=== PATIENT | female | born 1950 | race Caucasian/White ===

== ENCOUNTER 2017-11-26 07:18 | Day surgery (SDC) | payer MEDICARE, OTHER ==
[~2017-11-26] VITALS: Ht 165.1 cm; Wt 66.2 kg
[~2017-11-26 07:18] MED LIST: ASPIRIN81 MG; CAL MAG ZINC +1 EAC1; COZAAR50 MG PO; FENOFIBRIC ACI135 MG; GLUCOPHAGE500 MG PO; ISTALOL2.5 ML; LATANOPROST2.5 ML; NOVOLOG FL100 UNIT/1 SUB-Q; PRAVACHOL40 MG PO; VITAMIN B122500 MCG PO; VITAMIN E400 UNI4 PO
== END 2017-11-26 09:59 | disposition home or self-care (01) ==
LOC: DS 07:18 → OPS 07:18 → DS 08:30 → OPS 09:59
PROVIDERS: Ophthalmology
PROC: 08RK3JZ Replacement of Left Lens with Synthetic Substitute, Percutaneous Approach (ICD-10-PCS; principal; 2017-11-26 08:30)
DX: E11.36 Type 2 diabetes mellitus with diabetic cataract (principal); H25.13 Age-related nuclear cataract, bilateral; H40.1132 Primary open-angle glaucoma, bilateral, moderate stage; E78.00 Pure hypercholesterolemia, unspecified; I10 Essential (primary) hypertension; Z88.2 Allergy status to sulfonamides; Z83.3 Family history of diabetes mellitus; Z79.4 Long term (current) use of insulin
CPT/HCPCS: 0474T; 66984; C1783; J2250

== ENCOUNTER 2018-01-07 07:09 | Day surgery (SDC) | payer MEDICARE ==
[~2018-01-07] VITALS: Ht 165.1 cm; Wt 66.2 kg
== END 2018-01-07 09:19 | disposition home or self-care (01) ==
LOC: OPS 07:09 → DS 07:09 → OPS 08:30
PROVIDERS: Ophthalmology
PROC: 08RJ3JZ Replacement of Right Lens with Synthetic Substitute, Percutaneous Approach (ICD-10-PCS; principal; 2018-01-07 08:30)
DX: E11.36 Type 2 diabetes mellitus with diabetic cataract (principal); H25.11 Age-related nuclear cataract, right eye; E11.39 Type 2 diabetes mellitus with other diabetic ophthalmic complication; H40.9 Unspecified glaucoma; I10 Essential (primary) hypertension; E78.00 Pure hypercholesterolemia, unspecified; Z88.2 Allergy status to sulfonamides; Z79.82 Long term (current) use of aspirin; Z79.899 Other long term (current) drug therapy
CPT/HCPCS: 0474T; 66984; C1783; J2250